=== PATIENT | female | born 1940 | race Caucasian/White ===

== ENCOUNTER 2021-06-21 11:32 | Inpatient (IN) | payer BC ==
[2021-06-21] MEDS ORDERED: Ondansetron PF 4 MG/2 ML Vial IVP PRN (12:29)
[2021-06-21] MEDS ORDERED: HYDROcodone/Acetaminophen 5/325 mg Tablet PO PRN (12:29)
[2021-06-21] MEDS ORDERED: Calcium Carbonate 500 MG ChewTAB PO PRN (12:29)
[2021-06-21] MEDS ORDERED: Senokot S 8.6-50 MG TAB PO PRN (12:29)
[2021-06-21] MEDS ORDERED: Acetaminophen 325 MG TAB PO PRN (12:29)
[2021-06-21 13:28] VITALS: BMI 27.4
[2021-06-21] MEDS ORDERED: Benzonatate 100 MG CAP PO PRN (13:48)
[2021-06-21] MEDS: methylPREDNISolone Sod Succ 40 MG VIAL IVP SCH (18:24)
[2021-06-21] MEDS ORDERED: Famotidine/PF 20 mg/2ml Vial SLOW IVP SCH (21:00)
[2021-06-21] MEDS: guaiFENesin ER 600 MG TAB PO SCH (21:07)
[2021-06-22] MEDS: methylPREDNISolone Sod Succ 40 MG VIAL IVP SCH ×3 (01:27→14:09)
[2021-06-22 04:44] VITALS: TEMP 98.3
[2021-06-22 04:55] LABS: Anion Gap 17 mmol/L (10-20); BUN (Urea Nitrogen) 17 mg/dL (9.8-20.1); Calc. Creatinine Clearance 58 mL/min (70-130); Calcium 8.9 mg/dL (7.8-10.44); Carbon Dioxide 30 mmol/L (23-31); Chloride 93 mmol/L (98-107); Glucose 198 mg/dL (83-110); Sodium 137 mmol/L (136-145)
[2021-06-22 05:00] LABS: Potassium 2.8 mmol/L (3.5-5.1)
[2021-06-22 05:01] LABS: #Monocytes 0.2 10x3/uL (0.0-1.1); #Neutrophils 9.4 10x3/uL (1.5-8.4); %Basophils 0.2 % (0.0-2.0); %Lymphocytes 4.7 % (18.0-47.0); %Monocytes 1.9 % (0.0-10.0); %Neutrophils 91.8 % (40.0-75.0); Hemoglobin 11.4 g/dL (12.0-15.5); Mean Corpuscular HGB CONC 32.3 g/dL (32.0-36.0); Mean Corpuscular Hemoglobin 27.9 pg (27.0-33.0); Mean Corpuscular Volume 86.5 fl (81.6-98.3); Mean Platelet Volume 10.4 fl (7.4-10.4); Platelet Count 285 10x3/uL (150-450); Red Blood Cell (RBC) Count 4.08 10x6/uL (3.90-5.03); White Blood Cell (WBC) Count 10.2 10x3/uL (3.5-10.5)
[2021-06-22 05:40] LABS: Magnesium 1.8 mg/dL (1.6-2.6)
[2021-06-22] MEDS: Potassium Chloride 20 MEQ TAB PO SCH ×2 (06:13→09:58)
[2021-06-22] MEDS ORDERED: Enoxaparin Sodium 40 MG/0.4 ML SYRINGE SC SCH (09:00)
[2021-06-22] MEDS: guaiFENesin ER 600 MG TAB PO SCH (09:59)
[2021-06-22 13:00] VITALS: BP 118/59
== END 2021-06-22 15:00 | disposition home or self-care (01) | DRG 193 ==
LOC: CSHTELE 11:32
PROVIDERS: ADMIT Family Medicine; ATTEND Internal Medicine
DX: J18.9 Pneumonia, unspecified organism (principal); J96.21 Acute and chronic respiratory failure with hypoxia; J44.1 Chronic obstructive pulmonary disease with (acute) exacerbation; J44.0 Chronic obstructive pulmonary disease with (acute) lower respiratory infection; I10 Essential (primary) hypertension; E78.5 Hyperlipidemia, unspecified; E03.9 Hypothyroidism, unspecified; Z88.2 Allergy status to sulfonamides; Z79.899 Other long term (current) drug therapy; Z90.49 Acquired absence of other specified parts of digestive tract; Z87.891 Personal history of nicotine dependence
CPT/HCPCS: 36415; 71275; 80048; 82565; 83735; 84145; 84443; 85025; 94640; 94760; J1650; J1956; J2920; J7620; S0028

== ENCOUNTER 2022-02-17 10:43 | Outpatient (CLI) | payer BC | END 2022-02-17 10:44 | disposition home or self-care (01) | LOC: CSHCP 10:43 | PROVIDERS: ATTEND Internal Medicine Pulmonary Disease | DX: J44.9 Chronic obstructive pulmonary disease, unspecified (principal); R06.00 Dyspnea, unspecified | CPT/HCPCS: 94060; 94726; 94729; 94760 ==

== ENCOUNTER 2023-02-24 14:03 | Outpatient (CLI) | payer BC | END 2023-02-24 14:04 | disposition home or self-care (01) | LOC: CSHWCC 14:03 | PROVIDERS: ATTEND Nurse Practitioner Family | DX: S81.801D Unspecified open wound, right lower leg, subsequent encounter (principal); R60.0 Localized edema | CPT/HCPCS: 99203; G0463 ==

== ENCOUNTER 2023-03-04 13:21 | Outpatient (CLI) | payer BC | END 2023-03-04 13:22 | disposition home or self-care (01) | LOC: CSHWCC 13:21 | PROVIDERS: ATTEND Nurse Practitioner Family | DX: R60.0 Localized edema (principal); S81.801D Unspecified open wound, right lower leg, subsequent encounter | CPT/HCPCS: 11042 ==

== ENCOUNTER 2023-03-25 13:38 | Outpatient (CLI) | payer BC | END 2023-03-25 13:39 | disposition home or self-care (01) | LOC: CSHWCC 13:38 | PROVIDERS: ATTEND Nurse Practitioner Family | DX: S81.801D Unspecified open wound, right lower leg, subsequent encounter (principal); R60.0 Localized edema | CPT/HCPCS: 99211; G0463 ==

== ENCOUNTER 2023-04-15 09:55 | Outpatient (CLI) | payer BC | END 2023-04-15 09:56 | disposition home or self-care (01) | LOC: CSHWCC 09:55 | PROVIDERS: ATTEND Preventive Medicine Undersea and Hyperbaric Medicine | DX: S81.801D Unspecified open wound, right lower leg, subsequent encounter (principal) | CPT/HCPCS: 99211; G0463 ==

== ENCOUNTER 2023-04-28 10:36 | Outpatient (CLI) | payer BC | END 2023-04-28 10:37 | disposition home or self-care (01) | LOC: CSHWCC 10:36 | PROVIDERS: ATTEND Preventive Medicine Undersea and Hyperbaric Medicine | DX: S81.801D Unspecified open wound, right lower leg, subsequent encounter (principal) | CPT/HCPCS: 99213; G0463 ==

== ENCOUNTER 2023-07-16 12:18 | Outpatient (CLI) | payer BC | END 2023-07-16 12:19 | disposition home or self-care (01) | LOC: CSHRAD 12:18 | PROVIDERS: ATTEND Neurological Surgery | DX: S12.9XXD Fracture of neck, unspecified, subsequent encounter (principal); M47.812 Spondylosis without myelopathy or radiculopathy, cervical region | CPT/HCPCS: 72040 ==

== ENCOUNTER 2023-08-13 11:42 | Outpatient (CLI) | payer BC | END 2023-08-13 11:43 | disposition home or self-care (01) | LOC: CSHRAD 11:42 | PROVIDERS: ATTEND Physician Assistant | DX: S12.9XXD Fracture of neck, unspecified, subsequent encounter (principal) | CPT/HCPCS: 72040 ==